=== PATIENT | female | born 1990 | race African-American/Black ===

== ENCOUNTER 2016-11-05 11:07 | Outpatient (CLI) ==
[2016-03-22 21:22] VITALS: BMI 30.9
[2016-11-05 11:22] LABS: BASOPHILS % (AUTO) 0.3 % (0.0-3.0); EOSINOPHILS # (AUTO) 0.1 K/ul (0.0-0.7); EOSINOPHILS % (AUTO) 1.5 % (0.0-7.0); HEMATOCRIT 44.5 % (37.0-47.0); HEMOGLOBIN 13.8 g/dl (12.0-16.0); IMMATURE GRANULOCYTE % (AUTO) 0.3 % (0.0-5.0); LYMPHOCYTES # (AUTO) 1.8 K/uL (0.60-3.4); LYMPHOCYTES % (AUTO) 45.1 (10.0-50.0); MEAN CORPUSCULAR HEMOGLOBIN 27.4 pg (27.0-31.0); MEAN CORPUSCULAR VOLUME 88.3 fl (81.0-99.0); MONOCYTES # (AUTO) 0.3 K/uL (0.4-2.0); MONOCYTES % (AUTO) 6.7 (0-10); NEUTROPHILS # (AUTO) 1.8 K/ul (2.0-6.9); NEUTROPHILS % (AUTO) 46.1; PLATELET COUNT 227 10^3/uL (140-440); RED BLOOD COUNT 5.04 10^6/ul (4.20-5.40)
--- NOTE | 2016-11-05 11:41 | DI ---
EXAM: Two views of the right hip HISTORY: Lower back pain. COMPARISON: Left hip x-rays same day FINDINGS: There is no cortical irregularity or displaced fracture of the right hip. The joint space is maintained. There is no dislocation. The adjacent osseous structures the pelvis are normal. T here is a intrauterine device noted in the pelvis. IMPRESSION: No acute abnormality of the right hip.
--- NOTE | 2016-11-05 11:46 | DI ---
EXAM: Five radiographic images of the lumbar spine. Comparison: None available. Reason for study: Low back pain. FINDINGS: No acute fracture or subluxation. The vertebral bodies and intervertebral body disc spac e heights are well maintained. There is maintenance of the lumbar lordosis. Radiopaque intrauterine device is seen within the pelvis. Metallic clips overlying the thoracic spinal are presumed to the exterior to the patient. The partially imaged bowel gas pattern is unremarkable. IMPRESSION: No acute fracture or subluxation is seen in the lumbar spine.
--- NOTE | 2016-11-05 11:55 | DI ---
EXAM: Two views of the left hip HISTORY: Lower back pain. COMPARISON: Right hip x-rays same day FINDINGS: There is no lytic or blastic lesion of the left hip. The joint space is maintained. Ther e is no displaced fracture or dislocation. There is an intrauterine device in place. IMPRESSION: No acute abnormality of the left hip.
[2016-11-05 12:02] LABS: ALBUMIN 4.3 g/dL (3.4-5.0); ALBUMIN/GLOBULIN RATIO 1.3; ANION GAP 13.3; BILIRUBIN,TOTAL 0.32 mg/dL (0.00-1.20); BUN/CREATININE RATIO 29.54; CALCIUM 9.5 mg/dL (8.2-10.2); CREATININE 0.88 mg/dL (0.60-1.30); POTASSIUM 4.3 mmol/L (3.5-5.10); TOTAL PROTEIN 7.6 g/dL (6.4-8.2)
== END 2016-11-05 11:08 | disposition home or self-care (01) ==
LOC: LAB 11:07
PROVIDERS: ATTEND Nurse Practitioner Family
DX: E66.9 Obesity, unspecified (principal); R53.83 Other fatigue; M25.551 Pain in right hip; M54.5 Low back pain
CPT/HCPCS: 36415; 80053; 82306; 84443; 85025

== ENCOUNTER 2016-12-07 12:13 | Outpatient (CLI) ==
[2016-03-22 21:22] VITALS: BMI 30.9
[2016-12-07 12:51] LABS: CREATININE 0.86 mg/dL (0.60-1.30)
== END 2016-12-07 12:14 | disposition home or self-care (01) ==
LOC: LAB 12:13
PROVIDERS: ATTEND Nurse Practitioner Family
DX: R79.9 Abnormal finding of blood chemistry, unspecified (principal)
CPT/HCPCS: 36415; 82565; 84520

== ENCOUNTER 2017-01-07 15:17 | Emergency (ER) ==
[2017-01-07 15:25] VITALS: BP 113/77; TEMP 98.3; BMI 29.2
--- NOTE | 2017-01-07 15:47 | ED.PDOC ---
General ED Provider: Dr. DAVID HALE JR Chief Complaint: Back Pain Stated Complaint: woke up at 0200 this am--severe pain to left flank area-- denies any injury--had similar pain in past--bun elevated and instructed to drink more water--has been doing so--this pain hurts worse with movement--feels thirsty all the time--. [ End ]98.3 71 16 98% 113/77 03/03. CYST X1. D&C 2009 ALSO HAD BLOOD TRANSFUSION AT THIS TIME. WISDOM TEETH EXTRACTED X4. [ End ]. sleep apnea migraines. last summer--has iud Time Seen by Physician: 15:51 Mode of Arrival: Walk-In Information Source: Patient Exam Limitations: No limitations Primary Care Provider: RAJEEV BECKHAM Nursing and Triage Documentation Reviewed and Agree: No Review of Systems - Review Of Systems Constitutional: Reports: No symptoms Eyes: Reports: No symptoms Ears, Nose, Mouth, Throat: Reports: No symptoms Respiratory: Reports: No symptoms Cardiac: Reports: No symptoms GI: Reports: No symptoms : Reports: Flank pain, Pain (left flank pain worse last night had been better since seen in October for samew- elevated bun at that time), Urgency Musculoskeletal: Reports: Back pain, Muscle pain Skin: Reports: No symptoms Neurological: Reports: No symptoms Endocrine: Reports: No symptoms Hematologic/Lymphatic: Reports: No symptoms All Other Systems: Other Past Medical History - Past Medical History Endocrine: Reports: None Cardiovascular: Reports: None Respiratory: Reports: None Hematological: Reports: None Gastrointestinal: Reports: None Genitourinary: Reports: None Neuro/Psych: Reports: Migraine, Other Musculoskeletal: Reports: None Cancer: Reports: None Last Menstrual Period: last summer--has iud Other Pertinent Past Medical History: SLEEP APNEA - Surgical History General Surgical History: Reports: Other (WISDOM TEETH EXTRACTED X4). Denies: Hysterectomy (CYST X1D&C 2010 ALSO HAD BLOOD TRANSFUSION AT THIS TIME) - Family History Family History: Reports: Unknown - Social History Smoking Status: Never smoker Hx Substance Use: No Alcohol Screening: Occasionally Physical Exam - Physical Exam Appearance: Well-appearing Pain Distress: Mild Eyes: LANI, EOMI, Conjunctiva clear ENT: Ears normal, Nose normal, Oropharynx normal Neck: Supple Respiratory: Airway patent, Breath sounds clear, Breath sounds equal, Respirations nonlabored Cardiovascular: RRR, Pulses normal, No rub, No murmur GI/: Soft, Nontender, No masses, Bowel sounds normal, No Organomegaly Musculoskeletal: Normal strength, ROM intact, No edema, No calf tenderness Skin: Warm, Dry, Normal color Neurological: Sensation intact, Motor intact, Reflexes intact, Cranial nerves intact, Alert, Oriented Psychiatric: Affect appropriate, Mood appropriate Critical Care Note - Critical Care Note Total Time (mins): 0 Course - Course Hematology/Chemistry: 01/07/17 16:10 01/07/17 16:10 Orders, Labs, Meds: Lab Review 01/07/17 01/07/17 15:30 16:10 WBC 5.31 RBC 5.57 H Hgb 15.5 Hct 47.8 H MCV 85.8 MCH 27.8 MCHC 32.4 RDW Coeff of Joel 13.2 Plt Count 254 Immature Gran % (Auto) 0.2 Neut % (Auto) 53.6 Lymph % (Auto) 38.8 Emery % (Auto) 5.1 Eos % (Auto) 1.9 Baso % (Auto) 0.4 Immature Gran # (Auto) 0.0 Neut # 2.9 Lymph # 2.1 Emery # 0.3 L Eos # 0.1 Baso # 0.0 Sodium 140 Potassium 3.9 Chloride 101 Carbon Dioxide 31 Anion Gap 11.9 BUN 20 H Creatinine 0.91 Estimated GFR (MDRD) 89.00 BUN/Creatinine Ratio 21.97 Glucose 101 Calcium 10.0 Total Bilirubin 0.29 AST 17 ALT 19 Alkaline Phosphatase 51 Total Protein 9.0 H Albumin 4.8 Globulin 4.2 Albumin/Globulin Ratio 1.14 Amylase 80 Lipase 67 Urine Color Yellow Urine Clarity Hazy Urine pH 6.5 Ur Specific [place] 1.025 Urine Protein Trace Urine Glucose (UA) Negative Urine Ketones Trace Urine Blood Negative Urine Nitrite Negative Urine Bilirubin Negative Urine Urobilinogen 1.0 Ur Leukocyte Esterase Negative Urine Microscopic RBC 2-5 Urine Microscopic WBC 0-2 Ur Squamous Epith Cells 20-30 Amorphous Sediment 2+ Urine Bacteria Trace Urine Mucus 1+ Urine Test Negative Orders Category Date Time Status AMYLASE Stat LAB 01/07/17 16:10 Completed CBC W/ AUTO DIFF Stat LAB 01/07/17 16:10 Completed COMPREHENSIVE METABOLIC PANEL Stat LAB 01/07/17 16:10 Completed LIPASE Stat LAB 01/07/17 16:10 Completed TEST URINE [URINE ] Stat LAB 01/07/17 15:30 Completed UA [URINALYSIS C & S IF INDICATED] Stat LAB 01/07/17 15:[address] ABDOMEN/PELVIS WO CONTRAST Stat RADS 01/07/17 17:02 Completed Vital Signs: Temp Pulse Resp BP Pulse Ox 01/07/17 15:18 98.3 F 71 16 113/77 98 Departure - Departure Time of Disposition: 19:04 Disposition: HOME SELF-CARE Discharge Problem: Flank pain Instructions: Flank Pain (ED) Condition: Good Pt referred to PMD for follow-up: Yes Additional Instructions: no evidence of kidney problems specifically no kidney stones increase fluids- 6 to 8 8 ounce cups of clear liquids daily follow up with PMD- call in morning for routine follow up may use Naprosyn or Motrin for pain recheck urea nitrogen with PMD Prescriptions: Naproxen [Naprosyn] 500 mg PO Q12HR PRN #30 tablet PRN Reason: PAIN Allergies/Adverse Reactions: Allergies No Known Allergies Allergy (Verified 01/07/17 15:27) Home Medications: Ambulatory Orders Levonorgestrel [Mirena] 1 each IY d 09/05/15 Naproxen [Naprosyn] 500 mg PO Q12HR PRN #30 tablet 01/07/17
[2017-01-07 16:14] LABS: BASOPHILS % (AUTO) 0.4 % (0.0-3.0); EOSINOPHILS # (AUTO) 0.1 K/ul (0.0-0.7); EOSINOPHILS % (AUTO) 1.9 % (0.0-7.0); HEMATOCRIT 47.8 % (37.0-47.0); HEMOGLOBIN 15.5 g/dl (12.0-16.0); IMMATURE GRANULOCYTE % (AUTO) 0.2 % (0.0-5.0); LYMPHOCYTES # (AUTO) 2.1 K/uL (0.60-3.4); LYMPHOCYTES % (AUTO) 38.8 (10.0-50.0); MEAN CORPUSCULAR HEMOGLOBIN 27.8 pg (27.0-31.0); MEAN CORPUSCULAR HGB CONC 32.4 (31.8-35.4); MEAN CORPUSCULAR VOLUME 85.8 fl (81.0-99.0); MONOCYTES # (AUTO) 0.3 K/uL (0.4-2.0); MONOCYTES % (AUTO) 5.1 (0-10); NEUTROPHILS # (AUTO) 2.9 K/ul (2.0-6.9); NEUTROPHILS % (AUTO) 53.6; PLATELET COUNT 254 10^3/uL (140-440); RED BLOOD COUNT 5.57 10^6/ul (4.20-5.40); WHITE BLOOD COUNT 5.31 K/ul (4.6-10.2)
[2017-01-07 16:25] LABS: BILIRUBIN,URINE Negative (NEGATIVE); KETONES,URINE Trace (NEGATIVE); LEUKOCYTE ESTERASE ,URINE Negative (NEGATIVE); NITRITE,URINE Negative (NEGATIVE); PH,URINE 6.5 (5-9); PROTEIN,URINE Trace (NEGATIVE); URINE, BLOOD Negative (NEGATIVE)
[2017-01-07 16:34] LABS: ADD URINE MICROSCOPIC YES
[2017-01-07 16:35] LABS: BACTERIA,URINE TRACE (NOT PRESENT)
[2017-01-07 16:40] LABS: ALBUMIN 4.8 g/dL (3.4-5.0); ALBUMIN/GLOBULIN RATIO 1.14; ANION GAP 11.9; BILIRUBIN,TOTAL 0.29 mg/dL (0.00-1.20); BUN/CREATININE RATIO 21.97; CREATININE 0.91 mg/dL (0.60-1.30); POTASSIUM 3.9 mmol/L (3.5-5.10)
[2017-01-07 18:07] LABS: URINE PREGNANCY INTERNAL QC INTERNAL QC VALID
--- NOTE | 2017-01-07 18:57 | CT ---
EXAM: CT scan abdomen pelvis without contrast HISTORY: Left flank pain COMPARISON: None. FINDINGS: Contiguous axial images were obtained from lung bases to the symphysis pubis without cont rast utilizing 3-mm,. Sagittal and coronal reconstructions were imaged and reviewed.. There is dep endent atelectasis at the left lung base. The gallbladder is contracted. The liver pancreas spleen and adrenal glands have normal unenhanced CT appearance. The abdominal aorta is normal in course a nd caliber. Kidneys are morphologically normal. There is an intrauterine device within the uterus.. There is umbilical hernia containing fat.. Bone windows reveals no evidence of lytic or blastic l esions. IMPRESSION: There is an intrauterine device within uterus. There is no evidence of free fluid or inflammatory changes. Umbilical hernia containing only fat. And
== END 2017-01-07 19:46 | disposition home or self-care (01) ==
LOC: ED 15:17
DX: M54.9 Dorsalgia, unspecified (principal)
CPT/HCPCS: 36415; 80053; 81001; 81025; 82150; 83690; 85025; 99283

== ENCOUNTER 2017-08-11 08:29 | Outpatient (CLI) ==
[2017-08-11 09:33] LABS: ALBUMIN/GLOBULIN RATIO 1.08; ANION GAP 10.5; BILIRUBIN,TOTAL 0.28 mg/dL (0.00-1.20); BUN/CREATININE RATIO 24.09; CALCIUM 9.7 mg/dL (8.2-10.2); CHOL/HDL RATIO 3.1 (4.5-5.5); CREATININE 0.83 mg/dL (0.60-1.30); POTASSIUM 4.5 mmol/L (3.5-5.10); TOTAL PROTEIN 7.7 g/dL (6.4-8.2)
== END 2017-08-11 08:30 | disposition home or self-care (01) ==
LOC: LAB 08:29
PROVIDERS: ATTEND Nurse Practitioner Family
DX: R63.5 Abnormal weight gain (principal); E55.9 Vitamin D deficiency, unspecified
CPT/HCPCS: 36415; 80053; 80061; 82306; 84443; 93005; 93010

== ENCOUNTER 2022-04-11 08:38 | Inpatient (IN) ==
[2022-04-11 09:08] LABS: BILIRUBIN,URINE Negative (NEGATIVE); CLARITY,URINE Clear (CLEAR); COLOR,URINE Yellow (YELLOW); GLUCOSE, URINE (UA) Negative (NEGATIVE); KETONES,URINE Negative (NEGATIVE); LEUKOCYTE ESTERASE ,URINE Negative (NEGATIVE); NITRITE,URINE Negative (NEGATIVE); PH,URINE 7.5 (5-9); PROTEIN,URINE Trace (NEGATIVE); URINE, BLOOD Negative (NEGATIVE); UROBILINOGEN,URINE 0.2 (0.2)
[2022-04-11 09:10] LABS: URINE PREGNANCY TEST NEGATIVE (NEGATIVE)
[2022-04-11 09:14] LABS: BACTERIA,URINE TRACE (NOT PRESENT); MUCUS,URINE 2+ (NOT PRESENT); URINE RBC, MICROSCOPIC 0-2 (0-2); URINE WBC, MICROSCOPIC 0-2 (0-2)
[2022-04-11] MEDS ORDERED: TYLENOL PO STA (09:31)
[2022-04-11] MEDS ORDERED: SODIUM CHLORIDE 500 ML IV STA ×2 (09:36→12:56)
--- NOTE | 2022-04-11 09:42 | ED.PDOC ---
General ED Provider: Dr. MARILU GROVER Chief Complaint: Nausea/Vomiting Stated Complaint: woke up with headache nausea / emesis, malaise chills felt like she had fever . Hx migraine. Took home preg test reports faint positive has IUD and its up to date ,no covid vaccine, no meds taken. Reports new onset non productive cough . Non smoker, No injury Time Seen by Provider: 04/11/22 08:55 Mode of Arrival: Walk-In Information Source: Patient Exam Limitations: No limitations Primary Care Provider: do Nursing and Triage Documentation Reviewed and Agree: Yes Does patient meet sepsis criteria?: No System Inflammatory Response Syndrome: Not Applicable Sepsis Protocol: For patient's 13 years and over: Temp is 96.8 and below OR 101 and greater Pulse >90 BPM Resp >20/minute Acutely Altered Mental Status Are patient's symptoms suggestive of a new infection, such as: -Pneumonia -Skin, Soft Tissue -Endocarditis -UTI -Bone, Joint Infection -Implantable Device -Acute Abdominal Infection -Wound Infection -Meningitis -Blood Stream Catheter Infection -Unknown Review of Systems Review Of Systems Constitutional: Reports Chills, Fever (reports sensation of / low grade ) and Malaise; Denies Diaphoresis, Weakness or Sweats Eyes: Reports No symptoms; Denies Vision change Ears, Nose, Mouth, Throat: Reports No symptoms Respiratory: Reports Cough; Denies Short of air Cardiac: Reports No symptoms; Denies Chest pain, Edema, Irregular heart rate, Palpitations or Syncope GI: Reports Nausea and Vomiting; Denies Abdominal pain or Diarrhea : Reports No symptoms; Denies Frequency or Hematuria Musculoskeletal: Reports No symptoms Skin: Reports No symptoms; Denies Rash Neurological: Reports Anxiety and Headache (frontal / right ) Endocrine: Reports No symptoms Hematologic/Lymphatic: Reports No symptoms All Other Systems: Reviewed and Negative [facility] Medical History Migraine Ovarian cyst Sleep apnea Family History Mother Sleep apnea CHF (congestive heart failure) Hypertension Obesity Grandfather/Grandmother Cancer Hypertension FATHER Brain aneurysm Social History Smoking and tobacco status: Never smoker Surgical History History of ear, nose, and throat (ENT) surgery (~2009) History of surgery (02/06/12) Additional Medical History: D&C , umbilical hernia Female Reproductive History Menstrual control method: progestin IUCD Hx Hysterectomy: No Hx Tubal Ligation: No Hx Now: No Physical Exam Physical Exam Appearance: Reports Ill-appearing and Obese Ill-appearing: Mild Pain Distress: Mild Eyes: Reports LANI, EOMI and Conjunctiva clear ENT: Reports Ears normal, Nose normal and Oropharynx normal Neck: Supple Respiratory: Reports Airway patent, Breath sounds clear, Breath sounds equal and Respirations nonlabored; Denies Crackles, Rhonchi, Wheezes or Retractions Cardiovascular: Reports No murmur and Tachycardia; Denies Irregular rhythm GI/: Reports Soft and Nontender; Denies Tender Musculoskeletal: Reports Normal strength, ROM intact, No edema and No calf tenderness Skin: Reports Warm, Dry and Normal color; Denies Pale Neurological: Reports Sensation intact, Motor intact, Alert and Oriented Psychiatric: Reports Affect appropriate Interpretation Radiology Interpretation Radiology Interpretation By: Radiologist Exam Interpreted: CXR and CT Scan Xray Comments: neg chest neg ct brain EKG Interpretation Time of EKG #1: 12:39 Rate: Tachy Rhythm: Sinus Farnam: NL ST Segment: Other Interpretation: t wave inversion inf ant lat neg trop neg pain Time of EKG #2: 14:56 Rate: Tachy Rhythm: Sinus Ectopy: None Farnam: NL EKG Interpretation: improved from earlier Critical Care Note Critical Care Note Total Critical Care Time (mins): 30 Comments: reasessments / studies / reviews / meds Course Course Hematology/Chemistry: 04/11/22 09:47 04/11/22 09:47 Orders, Labs, Meds: Lab Review 04/11/22 04/11/22 04/11/22 09:00 09:00 09:35 WBC RBC Hgb Hct MCV MCH MCHC RDW Coeff of Joel Plt Count Immature Gran % (Auto) Neut % (Auto) Lymph % (Auto) Teller % (Auto) Eos % (Auto) Baso % (Auto) Neut # (Auto) Lymph # (Auto) Teller # (Auto) Eos # (Auto) Baso # (Auto) Immature Gran # (Auto) ESR PT INR APTT Sodium Potassium Chloride Carbon Dioxide Anion Gap BUN Creatinine Estimated GFR (MDRD) BUN/Creatinine Ratio Glucose Lactic Acid Calcium Total Bilirubin AST ALT Alkaline Phosphatase Troponin I Total Protein Albumin Globulin Albumin/Globulin Ratio Procalcitonin TSH D-Dimer Urine Color Yellow Urine Clarity Clear Urine pH 7.5 Ur Specific [place] 1.020 Urine Protein Trace H Urine Glucose (UA) Negative Urine Ketones Negative Urine Blood Negative Urine Nitrite Negative Urine Bilirubin Negative Urine Urobilinogen 0.2 Ur Leukocyte Esterase Negative Urine Microscopic RBC 0-2 Urine Microscopic WBC 0-2 Ur Squamous Epith Cells 10-20 Urine Bacteria Trace Urine Mucus 2+ Urine Test Negative Urine Opiates Screen Ur Oxycodone Screen Urine Methadone Screen Ur Propoxyphene Screen Ur Barbiturates Screen U Tricyclic Antidepress Ur Phencyclidine Scrn Ur Amphetamine Screen U Methamphetamines Scrn U Benzodiazepines Scrn Urine Cocaine Screen U Cannabinoids Screen SARS CoV-2 RNA Rapid GUILLERMINA Positive H 04/11/22 04/11/22 04/11/22 09:47 09:47 09:47 WBC 4.83 RBC 4.84 Hgb 13.4 Hct 41.6 MCV 86.0 MCH 27.7 MCHC 32.2 RDW Coeff of Joel 13.7 Plt Count 188 Immature Gran % (Auto) 0.2 Neut % (Auto) 84.7 H Lymph % (Auto) 5.6 L Teller % (Auto) 8.5 Eos % (Auto) 0.8 Baso % (Auto) 0.2 Neut # (Auto) 4.1 Lymph # (Auto) 0.3 L Teller # (Auto) 0.4 Eos # (Auto) 0.0 Baso # (Auto) 0.0 Immature Gran # (Auto) 0.0 ESR PT INR APTT Sodium 135.6 Potassium 4.26 Chloride 101.5 Carbon Dioxide 23.5 Anion Gap 14.86 BUN 13.5 Creatinine 0.87 Estimated GFR (MDRD) 91.00 BUN/Creatinine Ratio 15.51 Glucose 115.6 H Lactic Acid Calcium 8.92 Total Bilirubin 0.33 AST 30.2 ALT 24.1 Alkaline Phosphatase 53.4 Troponin I Total Protein 7.79 Albumin 4.44 Globulin 3.35 Albumin/Globulin Ratio 1.32 Procalcitonin TSH 0.403 L D-Dimer Urine Color Urine Clarity Urine pH Ur Specific [place] Urine Protein Urine Glucose (UA) Urine Ketones Urine Blood Urine Nitrite Urine Bilirubin Urine Urobilinogen Ur Leukocyte Esterase Urine Microscopic RBC Urine Microscopic WBC Ur Squamous Epith Cells Urine Bacteria Urine Mucus Urine Test Urine Opiates Screen Ur Oxycodone Screen Urine Methadone Screen Ur Propoxyphene Screen Ur Barbiturates Screen U Tricyclic Antidepress Ur Phencyclidine Scrn Ur Amphetamine Screen U Methamphetamines Scrn U Benzodiazepines Scrn Urine Cocaine Screen U Cannabinoids Screen SARS CoV-2 RNA Rapid GUILLERMINA 04/11/22 04/11/22 04/11/22 13:15 13:15 13:15 WBC RBC Hgb Hct MCV MCH MCHC RDW Coeff of Joel Plt Count Immature Gran % (Auto) Neut % (Auto) Lymph % (Auto) Teller % (Auto) Eos % (Auto) Baso % (Auto) Neut # (Auto) Lymph # (Auto) Teller # (Auto) Eos # (Auto) Baso # (Auto) Immature Gran # (Auto) ESR 5 PT 11.4 H INR 1.11 APTT 29.6 Sodium Potassium Chloride Carbon Dioxide Anion Gap BUN Creatinine Estimated GFR (MDRD) BUN/Creatinine Ratio Glucose Lactic Acid 0.66 L Calcium Total Bilirubin AST ALT Alkaline Phosphatase Troponin I Total Protein Albumin Globulin Albumin/Globulin Ratio Procalcitonin TSH D-Dimer Urine Color Urine Clarity Urine pH Ur Specific [place] Urine Protein Urine Glucose (UA) Urine Ketones Urine Blood Urine Nitrite Urine Bilirubin Urine Urobilinogen Ur Leukocyte Esterase Urine Microscopic RBC Urine Microscopic WBC Ur Squamous Epith Cells Urine Bacteria Urine Mucus Urine Test Urine Opiates Screen Ur Oxycodone Screen Urine Methadone Screen Ur Propoxyphene Screen Ur Barbiturates Screen U Tricyclic Antidepress Ur Phencyclidine Scrn Ur Amphetamine Screen U Methamphetamines Scrn U Benzodiazepines Scrn Urine Cocaine Screen U Cannabinoids Screen SARS CoV-2 RNA Rapid GUILLERMINA 04/11/22 04/11/22 04/11/22 13:15 13:15 13:15 WBC RBC Hgb Hct MCV MCH MCHC RDW Coeff of Joel Plt Count Immature Gran % (Auto) Neut % (Auto) Lymph % (Auto) Teller % (Auto) Eos % (Auto) Baso % (Auto) Neut # (Auto) Lymph # (Auto) Teller # (Auto) Eos # (Auto) Baso # (Auto) Immature Gran # (Auto) ESR PT INR APTT Sodium Potassium Chloride Carbon Dioxide Anion Gap BUN Creatinine Estimated GFR (MDRD) BUN/Creatinine Ratio Glucose Lactic Acid Calcium Total Bilirubin AST ALT Alkaline Phosphatase Troponin I < 0.012 Total Protein Albumin Globulin Albumin/Globulin Ratio Procalcitonin < 0.05 TSH D-Dimer 254.46 Urine Color Urine Clarity Urine pH Ur Specific [place] Urine Protein Urine Glucose (UA) Urine Ketones Urine Blood Urine Nitrite Urine Bilirubin Urine Urobilinogen Ur Leukocyte Esterase Urine Microscopic RBC Urine Microscopic WBC Ur Squamous Epith Cells Urine Bacteria Urine Mucus Urine Test Urine Opiates Screen Ur Oxycodone Screen Urine Methadone Screen Ur Propoxyphene Screen Ur Barbiturates Screen U Tricyclic Antidepress Ur Phencyclidine Scrn Ur Amphetamine Screen U Methamphetamines Scrn U Benzodiazepines Scrn Urine Cocaine Screen U Cannabinoids Screen SARS CoV-2 RNA Rapid GUILLERMINA 04/11/22 04/11/22 13:50 16:34 WBC RBC Hgb Hct MCV MCH MCHC RDW Coeff of Joel Plt Count Immature Gran % (Auto) Neut % (Auto) Lymph % (Auto) Teller % (Auto) Eos % (Auto) Baso % (Auto) Neut # (Auto) Lymph # (Auto) Teller # (Auto) Eos # (Auto) Baso # (Auto) Immature Gran # (Auto) ESR PT INR APTT Sodium Potassium Chloride Carbon Dioxide Anion Gap BUN Creatinine Estimated GFR (MDRD) BUN/Creatinine Ratio Glucose Lactic Acid Calcium Total Bilirubin AST ALT Alkaline Phosphatase Troponin I < 0.012 Total Protein Albumin Globulin Albumin/Globulin Ratio Procalcitonin TSH D-Dimer Urine Color Urine Clarity Urine pH Ur Specific [place] Urine Protein Urine Glucose (UA) Urine Ketones Urine Blood Urine Nitrite Urine Bilirubin Urine Urobilinogen Ur Leukocyte Esterase Urine Microscopic RBC Urine Microscopic WBC Ur Squamous Epith Cells Urine Bacteria Urine Mucus Urine Test Urine Opiates Screen Negative Ur Oxycodone Screen Negative Urine Methadone Screen Negative Ur Propoxyphene Screen Negative Ur Barbiturates Screen Negative U Tricyclic Antidepress Negative Ur Phencyclidine Scrn Negative Ur Amphetamine Screen Negative U Methamphetamines Scrn Negative U Benzodiazepines Scrn Negative Urine Cocaine Screen Negative U Cannabinoids Screen Negative SARS CoV-2 RNA Rapid GUILLERMINA Orders Category Date Time Status PLACE PATIENT OBSERVATION .TO SCU (MONITORED BED) ADMISSION 04/11/22 18:48 Active EKG-(ED ONLY) Stat CARDIO 04/11/22 12:24 Completed EKG-(ED ONLY) Stat CARDIO 04/11/22 14:49 Completed EKG-(IP & OP ONLY) DAILY CARDIO 04/12/22 06:00 Ordered EKG-(IP & OP ONLY) DAILY CARDIO 04/13/22 06:00 Ordered ACTIVITY .Up With Assistance CARE 04/11/22 18:48 Active INTAKE & OUTPUT Q8HR CARE 04/11/22 18:48 Active IP: INSERT SALINE LOCK ONCE CARE 04/11/22 18:48 Active TELEMETRY MONITORING TELE CARE 04/11/22 18:48 Active VITAL SIGNS Q8HR CARE 04/11/22 18:48 Active REGULAR DIET DIETARY 04/11/22 Dinner Ordered ED IV/MEDIPORT/POWERPORT .ONCE EMERGENCY 04/11/22 09:36 Active CBC W/ AUTO DIFF DAILY@0600 LAB 04/12/22 06:00 Ordered CBC W/ AUTO DIFF DAILY@0600 LAB 04/13/22 06:00 Ordered CBC W/ AUTO DIFF Stat LAB 04/11/22 09:47 Completed CMP [COMPREHENSIVE METABOLIC PANEL] Stat LAB 04/11/22 09:47 Completed COMPREHENSIVE METABOLIC PANEL DAILY@0600 LAB 04/12/22 06:00 Ordered COMPREHENSIVE METABOLIC PANEL DAILY@0600 LAB 04/13/22 06:00 Ordered COVID [SARS COV-2 RNA RAPID GUILLERMINA] Urgent LAB 04/11/22 09:35 Completed D-DIMER Stat LAB 04/11/22 13:15 Completed ESR Stat LAB 04/11/22 13:15 Completed LACTIC ACID Stat LAB 04/11/22 13:15 Completed PROCALCITONIN Stat LAB 04/11/22 13:15 Completed PT WITH INR Stat LAB 04/11/22 13:15 Completed PTT [PARTIAL THROMBOPLASTIN TIME] Stat LAB 04/11/22 13:15 Completed THYROID PANEL WITH TSH Stat LAB 04/11/22 13:15 Received TROPONIN I Q8H LAB 04/12/22 01:00 Ordered TROPONIN I Q8H LAB 04/12/22 09:00 Ordered TROPONIN I Stat LAB 04/11/22 13:15 Completed TROPONIN I Stat LAB 04/11/22 16:34 Completed TSH [THYROID STIMULATING HORMONE] Stat LAB 04/11/22 09:47 Completed URINALYSIS C & S IF INDICATED Stat LAB 04/11/22 09:00 Completed URINE DRUG SCREEN (RAPID FOR ED) [DRUG SCREEN, URINE, LAB 04/11/22 13:50 Completed RAPID] Stat URINE Stat LAB 04/11/22 09:00 Completed 0.9 % Sodium Chloride [Saline Flush] MEDS 04/11/22 09:36 Active 1 syr IVF PRN PRN Acetaminophen [Tylenol] MEDS 04/11/22 09:31 Discontinued 1,000 mg PO ONCE STA Acetaminophen [Tylenol] MEDS 04/11/22 18:48 Active 650 mg PO Q4H PRN Enoxaparin Sodium [Lovenox] MEDS 04/12/22 09:00 Discontinued 40 mg SUBCUT DAILY Ketorolac Tromethamine [Toradol] MEDS 04/11/22 11:45 Discontinued 30 mg IVP ONCE STA Lorazepam [Ativan] MEDS 04/11/22 12:26 Discontinued 0.5 mg IVP ONCE STA Nirmatrelvir/Ritonavir [Paxlovid 2X150 mg-100 mg (Eua)] MEDS 04/11/22 21:00 Active 3 tab PO BID Sodium Chloride 0.9% [Sodium Chloride] 1,000 ml MEDS 04/11/22 12:44 Discontinued IV 125 mls/hr Sodium Chloride 0.9% [Sodium Chloride] 1,000 ml MEDS 04/11/22 19:00 Active IV 75 mls/hr Sodium Chloride 0.9% [Sodium Chloride] 500 ml MEDS 04/11/22 12:56 Discontinued IV 100 mls/hr Sodium Chloride 0.9% [Sodium Chloride] 500 ml MEDS 04/11/22 09:36 Discontinued IV BOLUS RESUSCITATION STATUS Routine OTHERS 04/11/22 18:48 Ordered CHEST, 2 VIEWS PA & LAT Stat RADS 04/11/22 09:[address] HEAD W/O CONTRAST Stat RADS 04/11/22 09:31 Completed Medications Generic Name Dose Route Start Last Admin Trade Name Freq PRN Reason Stop Dose Admin Acetaminophen 650 mg 04/11/22 18:48 04/11/22 21:34 Acetaminophen 325 Mg Tablet PO 650 mg Q4H PRN Administration Mild Pain Enoxaparin Sodium 40 mg 04/11/22 21:00 04/11/22 21:49 Enoxaparin Sodium 40 Mg/0.4 Ml Syr SUBCUT 40 mg DAILY STEPHANIE Administration Sodium Chloride 1,000 mls @ 75 mls/hr 04/11/22 19:00 04/11/22 21:37 Sodium Chloride IV 75 mls/hr .[id number] STEPHANIE Administration Ondansetron HCl 4 mg 04/11/22 21:09 04/11/22 21:35 Ondansetron Hcl/Pf 4 Mg/2 Ml Sdv IVP 4 mg Q8H PRN Administration Nausea / Vomiting Sodium Chloride 1 syr 04/11/22 09:36 04/11/22 11:50 0.9% Sodium Chloride 10 Ml Disp.Syrin IVF 1 syr PRN PRN Administration To flush IV Discontinued Medications Generic Name Dose Route Start Last Admin Trade Name Freq PRN Reason Stop Dose Admin Acetaminophen 1,000 mg 04/11/22 09:31 04/11/22 09:39 Acetaminophen 500 Mg Tablet PO 04/11/22 09:32 1,000 mg ONCE STA Administration Dexamethasone Sodium Phosphate 4 mg 04/11/22 22:26 04/11/22 22:34 Dexamethasone Sod Phos 4 Mg/Ml Inj IVP 04/11/22 22:27 4 mg ONCE ONE Administration Enoxaparin Sodium 40 mg 04/12/22 09:00 Enoxaparin Sodium 40 Mg/0.4 Ml Syr SUBCUT DAILY STEPHANIE Sodium Chloride 500 mls @ 500 mls/hr 04/11/22 09:36 04/11/22 09:42 Sodium Chloride IV 04/11/22 10:35 500 mls/hr BOLUS STA Administration Sodium Chloride 1,000 mls @ 125 mls/hr 04/11/22 12:44 04/11/22 12:56 Sodium Chloride IV 04/11/22 20:43 Not Given .Q8H STA Sodium Chloride 500 mls @ 100 mls/hr 04/11/22 12:56 04/11/22 12:57 Sodium Chloride IV 04/11/22 17:55 125 mls/hr .Q5H STA Administration Dexamethasone Sodium Phosphate 1,000 mls @ 75 mls/hr 04/11/22 22:06 4 mg/ Sodium Chloride IV 04/12/22 11:25 ONCE ONE Ketorolac Tromethamine 30 mg 04/11/22 11:45 04/11/22 11:49 Ketorolac Tromethamine 30 Mg/Ml Vial IVP 04/11/22 11:46 30 mg ONCE STA Administration Lorazepam 0.5 mg 04/11/22 12:26 04/11/22 12:42 Lorazepam Inj 2 Mg/Ml Vial IVP 04/11/22 12:27 0.5 mg ONCE STA Administration our hcg is neg , consider migraine and covid. Vital Signs: Temp Pulse Resp BP Pulse Ox 04/11/22 08:39 99.2 F 116 H 20 132/84 97 1230 - pt at d/c had pulse reported 120 - d/c held - reassess - no cp or dyspnea - she reports panic attacks and had one this am and concerned for starting new job now delayed with covid dx - will add half mg of ativan and proceed due to covid dx additional study - dimer. 1350 - resting no cp or dyspnea - await dimer tsp slight low will add tox screen for completeness of evaluation studies tsh slight low other thyoid panel neg / Toradol IV with nl head ct and her aches and headche improved . No further nausea Pt sill with tachycardia with ekg abnormality ( no stemi ) will check serial enzymes and observe in ED in attempt to discharge her home. troponins neg add additional fluids in event tachy related to decreased intake.Discussed with SO with permission of patientand explaine d ED observation for improvement vs 23 hr . Pt kept in dept as I would be hospitalsit and with very busy dept I kept her where i would not have to be away from a busy ED. Called [facility] for observation and not accept suggest d/c . With my seeing patient Im concerned she will have to return. Placed call to Dr Perry and he kindly agreed to consult. SBAR given. Pt agrees with 23 hr stay. She had earlier agreed to start oral Covid treatment. Discharge Plan Discharge Patient Disposition: PLACED OBSERVATION Discharge Problem: COVID, Tachycardia, Nausea & vomiting ED Provider: MARILU GROVER Condition: Good Physician Progress Note: []
[2022-04-11 09:53] LABS: BASOPHILS % (AUTO) 0.2 % (0.0-3.0); EOSINOPHILS % (AUTO) 0.8 % (0.0-7.0); HEMATOCRIT 41.6 % (37.0-47.0); HEMOGLOBIN 13.4 g/dl (12.0-16.0); IMMATURE GRANULOCYTE % (AUTO) 0.2 % (0.0-5.0); LYMPHOCYTES # (AUTO) 0.3 K/uL (0.60-3.4); LYMPHOCYTES % (AUTO) 5.6 (10.0-50.0); MEAN CORPUSCULAR HEMOGLOBIN 27.7 pg (27.0-31.0); MEAN CORPUSCULAR HGB CONC 32.2 (31.8-35.4); MONOCYTES # (AUTO) 0.4 K/uL (0.4-2.0); MONOCYTES % (AUTO) 8.5 (0-10); NEUTROPHILS # (AUTO) 4.1 K/ul (2.0-6.9); NEUTROPHILS % (AUTO) 84.7 % (42.2-75.2); PLATELET COUNT 188 10^3/uL (140-440); RDW COEFFICIENT OF VARIATION 13.7 % (11.6-14.8); RED BLOOD COUNT 4.84 10^6/ul (4.20-5.40); WHITE BLOOD COUNT 4.83 K/ul (4.6-10.2)
[2022-04-11 10:05] LABS: ALANINE AMINOTRANSFERASE 24.1 U/L (0-35); ALBUMIN 4.44 g/dL (3.5-5.0); ALKALINE PHOSPHATASE 53.4 U/L (38-126); ASPARTATE AMINO TRANSFERASE 30.2 U/L (14-36); BILIRUBIN,TOTAL 0.33 mg/dL (0.2-1.3); BLOOD UREA NITROGEN 13.5 mg/dL (7-17); CALCIUM 8.92 mg/dL (8.4-10.2); CARBON DIOXIDE 23.5 mmol/L (22-30.0); CHLORIDE 101.5 mmol/L (98-107); CREATININE 0.87 mg/dL (0.60-1.30); GLUCOSE 115.6 mg/dL (74-106); POTASSIUM 4.26 mmol/L (3.5-5.1); SODIUM 135.6 mmol/L (134.5-145); TOTAL PROTEIN 7.79 g/dL (6.3-8.2)
--- NOTE | 2022-04-11 11:00 | CT ---
EXAM: CT head without contrast HISTORY: Headache COMPARISON: None TECHNIQUE: Serial axial images of the brain were obtained from the skull base to the vertex without IV contrast. FINDINGS: The ventricles, cisterns and sulci are normal. The carlton-white matter junction is well hany ntained. No midline shift or mass is identified. There is no abnormal intra or extra-axial fluid co llection. The paranasal sinuses and mastoid air cells are clear. The osseous calvarium is intact. IMPRESSION: No acute intracranial abnormality. All CT scans are performed using dose optimization techniques as appropriate to the performed exam an d include at least one of the following: Automated exposure control, adjustment of the mA and/or kV according t o size, and the use of iterative reconstruction technique.
--- NOTE | 2022-04-11 11:01 | DI ---
EXAM: CHEST RADIOGRAPH (2 VIEW) TECHNIQUE: Frontal and Lateral Chest Radiographs. HISTORY: Cough. COMPARISON: None. FINDINGS: Lines, Tubes, Devices: None. Lungs and Pleura: Tiny linear opacity at the left lung base. No pleural effusion. No pneumothorax. Cardiomediastinum: Normal cardiomediastinal silhouette. No aortic calcifications. Bones/Soft Tissues: No acute osseous abnormality. No soft tissue abnormality. Upper Abdomen: Within normal limits. IMPRESSION: Small area of focal scarring/atelectasis in the left lower lobe.
[2022-04-11] MEDS ORDERED: TORADOL IVP STA (11:45)
[2022-04-11] MEDS ORDERED: ATIVAN IVP STA (12:26)
[2022-04-11] MEDS ORDERED: SODIUM CHLORIDE 1,000 ML IV STA (12:44)
[2022-04-11 13:44] LABS: PARTIAL THROMBOPLASTIN TIME 29.6 SEC (23.9-40.0); PROTHROMBIN TIME 11.4 SEC (9.3-11.0)
[2022-04-11 14:12] LABS: ERYTHROCYTE SEDIMENTATION RATE 5 mm/hr (0-20)
[2022-04-11 14:30] LABS: AMPHETAMINE SCREEN,URINE NEGATIVE (NEGATIVE); BARBITURATE SCREEN,URINE NEGATIVE (NEGATIVE); BENZODIAZEPINES SCREEN,URINE NEGATIVE (NEGATIVE); CANNABINOID SCREEN,URINE NEGATIVE (NEGATIVE); COCAIN SCREEN,URINE NEGATIVE (NEGATIVE); METHADONE URINE SCREEN NEGATIVE (NEGATIVE); METHAMPHETAMINES SCREEN,URINE NEGATIVE (NEGATIVE); OPIATE SCREEN,URINE NEGATIVE (NEGATIVE); OXYCODONE URINE SCREEN NEGATIVE (NEGATIVE); PHENCYCLIDINE SCREEN,URINE NEGATIVE (NEGATIVE); PROPOXYPHENE URINE SCREEN NEGATIVE (NEGATIVE); TRICYCLIC ANTIDEPRESSANTS URIN NEGATIVE (NEGATIVE)
[2022-04-11] MEDS ORDERED: TYLENOL PO PRN (18:48)
[2022-04-11] MEDS ORDERED: SODIUM CHLORIDE 1,000 ML IV SCH (19:00)
[2022-04-11] MEDS ORDERED: ZOFRAN 4 MG/2 ML IVP PRN (21:09)
[2022-04-11 21:22] VITALS: BMI 35.7
[2022-04-11] MEDS: LOVENOX SUBCUT SCH (21:49)
[2022-04-11] MEDS ORDERED: SODIUM CHLORIDE IV ONE (22:06)
[2022-04-11] MEDS ORDERED: DECADRON IV ONE (22:06)
[2022-04-11] MEDS ORDERED: DECADRON ONE (22:19)
[2022-04-11] MEDS: PAXLOVID 2X150 MG-100 MG (EUA) PO SCH (22:20)
[2022-04-11] MEDS ORDERED: DECADRON 4 MG in SODIUM CHLORIDE 50 ML IV ONE (22:21)
[2022-04-11] MEDS ORDERED: DECADRON IVP ONE (22:26)
--- NOTE | 2022-04-11 23:12 | PCM ---
Chief Complaint Chief Complaint: nausea / vomiting / headache / myalgia / cough / chills History of Present Illness History of Present Illness: began last night Review of Systems Constitutional: Reports Fever; Denies Sweats Eyes: Reports No symptoms Ears: Reports No symptoms Nose: Reports No symptoms Throat: Reports No symptoms Mouth: Reports No symptoms Respiratory: Reports Cough; Denies Shortness of air, Hemoptysis or Pain with breathing Cardiovascular: Reports No symptoms Gastrointestinal: Reports Nausea and Vomiting Genitourinary: Reports No symptoms Last Menstrual Cycle: IUD Neurological: Reports Headache; Denies Dizziness, Seizure, Numbness, Weakness, Speech difficulty, Problems with walking, Tremor or Fainting Musculoskeletal: Reports Other (achiness ) Skin: Reports No symptoms Immunology: Reports No symptoms Hematology: Reports No symptoms Endocrine: Reports No symptoms Psychiatric: Reports Anxiety (panic attack this am ) Habits: Denies Tobacco use or Substance use Allergies Allergies Allergy/AdvReac Type Severity Reaction Status Date / Time No Known Allergies Allergy Verified 04/11/22 08:47 [facility] Medical History (Updated 04/11/22 @ 23:09 by MARILU GROVER) Migraine Ovarian cyst Sleep apnea Surgical History History of ear, nose, and throat (ENT) surgery (~2009) History of surgery (02/06/12) Family History Mother Sleep apnea CHF (congestive heart failure) Hypertension Obesity Grandfather/Grandmother Cancer Hypertension FATHER Brain aneurysm Social History Smoking and tobacco status: Never smoker Medications Medications: Medications Generic Name Dose Route Start Last Admin Trade Name Freq PRN Reason Stop Dose Admin Acetaminophen 650 mg 04/11/22 18:48 04/11/22 21:34 Acetaminophen 325 Mg Tablet PO 650 mg Q4H PRN Administration Mild Pain Enoxaparin Sodium 40 mg 04/11/22 21:00 04/11/22 21:49 Enoxaparin Sodium 40 Mg/0.4 Ml Syr SUBCUT 40 mg DAILY STEPHANIE Administration Sodium Chloride 1,000 mls @ 75 mls/hr 04/11/22 19:00 04/11/22 21:37 Sodium Chloride IV 75 mls/hr .[id number] STEPHANIE Administration Ondansetron HCl 4 mg 04/11/22 21:09 04/11/22 21:35 Ondansetron Hcl/Pf 4 Mg/2 Ml Sdv IVP 4 mg Q8H PRN Administration Nausea / Vomiting Sodium Chloride 1 syr 04/11/22 09:36 04/11/22 11:50 0.9% Sodium Chloride 10 Ml Disp.Syrin IVF 1 syr PRN PRN Administration To flush IV Body Composition Height: 5 ft 3 in Weight: 202 lb Body Mass Index (BMI): 35.7 Vital Signs Temperature: 102.1 F Pulse Rate: 120 Respiratory Rate: 20 Blood Pressure: 120/90 O2 Sat by Pulse Oximetry: 98 Physical Examination Appearance: Reports Ill-appearing Ill-appearing: Mild Pain Distress: Mild ENT: Reports Ears normal, Nose normal and Oropharynx normal Cardiovascular: Reports Tachycardia GI/: Reports Soft and Nontender Musculoskeletal: Reports Normal strength and No edema Skin: Reports Warm, Dry and Normal color Neurological: Reports Sensation intact, Motor intact, Alert and Oriented Psychiatric: Reports Affect appropriate and Mood appropriate Lab/Tests/Diagnostic Imaging Lab/Tests/Diagnostic Imaging: Lab Review 04/11/22 04/11/22 04/11/22 09:00 09:00 09:35 WBC RBC Hgb Hct MCV MCH MCHC RDW Coeff of Joel Plt Count Immature Gran % (Auto) Neut % (Auto) Lymph % (Auto) [place] % (Auto) Eos % (Auto) Baso % (Auto) Neut # (Auto) Lymph # (Auto) [place] # (Auto) Eos # (Auto) Baso # (Auto) Immature Gran # (Auto) ESR PT INR APTT Sodium Potassium Chloride Carbon Dioxide Anion Gap BUN Creatinine Estimated GFR (MDRD) BUN/Creatinine Ratio Glucose Lactic Acid Calcium Total Bilirubin AST ALT Alkaline Phosphatase Troponin I Total Protein Albumin Globulin Albumin/Globulin Ratio Procalcitonin TSH D-Dimer Urine Color Yellow Urine Clarity Clear Urine pH 7.5 Ur Specific [place] 1.020 Urine Protein Trace H Urine Glucose (UA) Negative Urine Ketones Negative Urine Blood Negative Urine Nitrite Negative Urine Bilirubin Negative Urine Urobilinogen 0.2 Ur Leukocyte Esterase Negative Urine Microscopic RBC 0-2 Urine Microscopic WBC 0-2 Ur Squamous Epith Cells 10-20 Urine Bacteria Trace Urine Mucus 2+ Urine Test Negative Urine Opiates Screen Ur Oxycodone Screen Urine Methadone Screen Ur Propoxyphene Screen Ur Barbiturates Screen U Tricyclic Antidepress Ur Phencyclidine Scrn Ur Amphetamine Screen U Methamphetamines Scrn U Benzodiazepines Scrn Urine Cocaine Screen U Cannabinoids Screen SARS CoV-2 RNA Rapid GUILLERMINA Positive H 04/11/22 04/11/22 04/11/22 09:47 09:47 09:47 WBC 4.83 RBC 4.84 Hgb 13.4 Hct 41.6 MCV 86.0 MCH 27.7 MCHC 32.2 RDW Coeff of Joel 13.7 Plt Count 188 Immature Gran % (Auto) 0.2 Neut % (Auto) 84.7 H Lymph % (Auto) 5.6 L [place] % (Auto) 8.5 Eos % (Auto) 0.8 Baso % (Auto) 0.2 Neut # (Auto) 4.1 Lymph # (Auto) 0.3 L [place] # (Auto) 0.4 Eos # (Auto) 0.0 Baso # (Auto) 0.0 Immature Gran # (Auto) 0.0 ESR PT INR APTT Sodium 135.6 Potassium 4.26 Chloride 101.5 Carbon Dioxide 23.5 Anion Gap 14.86 BUN 13.5 Creatinine 0.87 Estimated GFR (MDRD) 91.00 BUN/Creatinine Ratio 15.51 Glucose 115.6 H Lactic Acid Calcium 8.92 Total Bilirubin 0.33 AST 30.2 ALT 24.1 Alkaline Phosphatase 53.4 Troponin I Total Protein 7.79 Albumin 4.44 Globulin 3.35 Albumin/Globulin Ratio 1.32 Procalcitonin TSH 0.403 L D-Dimer Urine Color Urine Clarity Urine pH Ur Specific [place] Urine Protein Urine Glucose (UA) Urine Ketones Urine Blood Urine Nitrite Urine Bilirubin Urine Urobilinogen Ur Leukocyte Esterase Urine Microscopic RBC Urine Microscopic WBC Ur Squamous Epith Cells Urine Bacteria Urine Mucus Urine Test Urine Opiates Screen Ur Oxycodone Screen Urine Methadone Screen Ur Propoxyphene Screen Ur Barbiturates Screen U Tricyclic Antidepress Ur Phencyclidine Scrn Ur Amphetamine Screen U Methamphetamines Scrn U Benzodiazepines Scrn Urine Cocaine Screen U Cannabinoids Screen SARS CoV-2 RNA Rapid GUILLERMINA 04/11/22 04/11/22 04/11/22 13:15 13:15 13:15 WBC RBC Hgb Hct MCV MCH MCHC RDW Coeff of Joel Plt Count Immature Gran % (Auto) Neut % (Auto) Lymph % (Auto) [place] % (Auto) Eos % (Auto) Baso % (Auto) Neut # (Auto) Lymph # (Auto) [place] # (Auto) Eos # (Auto) Baso # (Auto) Immature Gran # (Auto) ESR 5 PT 11.4 H INR 1.11 APTT 29.6 Sodium Potassium Chloride Carbon Dioxide Anion Gap BUN Creatinine Estimated GFR (MDRD) BUN/Creatinine Ratio Glucose Lactic Acid 0.66 L Calcium Total Bilirubin AST ALT Alkaline Phosphatase Troponin I Total Protein Albumin Globulin Albumin/Globulin Ratio Procalcitonin TSH D-Dimer Urine Color Urine Clarity Urine pH Ur Specific [place] Urine Protein Urine Glucose (UA) Urine Ketones Urine Blood Urine Nitrite Urine Bilirubin Urine Urobilinogen Ur Leukocyte Esterase Urine Microscopic RBC Urine Microscopic WBC Ur Squamous Epith Cells Urine Bacteria Urine Mucus Urine Test Urine Opiates Screen Ur Oxycodone Screen Urine Methadone Screen Ur Propoxyphene Screen Ur Barbiturates Screen U Tricyclic Antidepress Ur Phencyclidine Scrn Ur Amphetamine Screen U Methamphetamines Scrn U Benzodiazepines Scrn Urine Cocaine Screen U Cannabinoids Screen SARS CoV-2 RNA Rapid GUILLERMINA 04/11/22 04/11/22 04/11/22 13:15 13:15 13:15 WBC RBC Hgb Hct MCV MCH MCHC RDW Coeff of Joel Plt Count Immature Gran % (Auto) Neut % (Auto) Lymph % (Auto) [place] % (Auto) Eos % (Auto) Baso % (Auto) Neut # (Auto) Lymph # (Auto) [place] # (Auto) Eos # (Auto) Baso # (Auto) Immature Gran # (Auto) ESR PT INR APTT Sodium Potassium Chloride Carbon Dioxide Anion Gap BUN Creatinine Estimated GFR (MDRD) BUN/Creatinine Ratio Glucose Lactic Acid Calcium Total Bilirubin AST ALT Alkaline Phosphatase Troponin I < 0.012 Total Protein Albumin Globulin Albumin/Globulin Ratio Procalcitonin < 0.05 TSH D-Dimer 254.46 Urine Color Urine Clarity Urine pH Ur Specific [place] Urine Protein Urine Glucose (UA) Urine Ketones Urine Blood Urine Nitrite Urine Bilirubin Urine Urobilinogen Ur Leukocyte Esterase Urine Microscopic RBC Urine Microscopic WBC Ur Squamous Epith Cells Urine Bacteria Urine Mucus Urine Test Urine Opiates Screen Ur Oxycodone Screen Urine Methadone Screen Ur Propoxyphene Screen Ur Barbiturates Screen U Tricyclic Antidepress Ur Phencyclidine Scrn Ur Amphetamine Screen U Methamphetamines Scrn U Benzodiazepines Scrn Urine Cocaine Screen U Cannabinoids Screen SARS CoV-2 RNA Rapid GUILLERMINA 04/11/22 04/11/22 13:50 16:34 WBC RBC Hgb Hct MCV MCH MCHC RDW Coeff of Joel Plt Count Immature Gran % (Auto) Neut % (Auto) Lymph % (Auto) [place] % (Auto) Eos % (Auto) Baso % (Auto) Neut # (Auto) Lymph # (Auto) [place] # (Auto) Eos # (Auto) Baso # (Auto) Immature Gran # (Auto) ESR PT INR APTT Sodium Potassium Chloride Carbon Dioxide Anion Gap BUN Creatinine Estimated GFR (MDRD) BUN/Creatinine Ratio Glucose Lactic Acid Calcium Total Bilirubin AST ALT Alkaline Phosphatase Troponin I < 0.012 Total Protein Albumin Globulin Albumin/Globulin Ratio Procalcitonin TSH D-Dimer Urine Color Urine Clarity Urine pH Ur Specific [place] Urine Protein Urine Glucose (UA) Urine Ketones Urine Blood Urine Nitrite Urine Bilirubin Urine Urobilinogen Ur Leukocyte Esterase Urine Microscopic RBC Urine Microscopic WBC Ur Squamous Epith Cells Urine Bacteria Urine Mucus Urine Test Urine Opiates Screen Negative Ur Oxycodone Screen Negative Urine Methadone Screen Negative Ur Propoxyphene Screen Negative Ur Barbiturates Screen Negative U Tricyclic Antidepress Negative Ur Phencyclidine Scrn Negative Ur Amphetamine Screen Negative U Methamphetamines Scrn Negative U Benzodiazepines Scrn Negative Urine Cocaine Screen Negative U Cannabinoids Screen Negative SARS CoV-2 RNA Rapid GUILLERMINA Orders Category Date Time Status PLACE PATIENT OBSERVATION .TO SCU (MONITORED BED) ADMISSION 04/11/22 18:48 Active EKG-(ED ONLY) Stat CARDIO 04/11/22 12:24 Completed EKG-(ED ONLY) Stat CARDIO 04/11/22 14:49 Completed EKG-(IP & OP ONLY) DAILY CARDIO 04/12/22 06:00 Ordered EKG-(IP & OP ONLY) DAILY CARDIO 04/13/22 06:00 Ordered ACTIVITY .Up With Assistance CARE 04/11/22 18:48 Active INTAKE & OUTPUT Q8HR CARE 04/11/22 18:48 Active IP: INSERT SALINE LOCK ONCE CARE 04/11/22 18:48 Active TELEMETRY MONITORING TELE CARE 04/11/22 18:48 Active VITAL SIGNS Q8HR CARE 04/11/22 18:48 Active REGULAR DIET DIETARY 04/11/22 Dinner Ordered ED IV/MEDIPORT/POWERPORT .ONCE EMERGENCY 04/11/22 09:36 Active CBC W/ AUTO DIFF DAILY@0600 LAB 04/12/22 06:00 Ordered CBC W/ AUTO DIFF DAILY@0600 LAB 04/13/22 06:00 Ordered CBC W/ AUTO DIFF Stat LAB 04/11/22 09:47 Completed CMP [COMPREHENSIVE METABOLIC PANEL] Stat LAB 04/11/22 09:47 Completed COMPREHENSIVE METABOLIC PANEL DAILY@0600 LAB 04/12/22 06:00 Ordered COMPREHENSIVE METABOLIC PANEL DAILY@0600 LAB 04/13/22 06:00 Ordered COVID [SARS COV-2 RNA RAPID GUILLERMINA] Urgent LAB 04/11/22 09:35 Completed D-DIMER Stat LAB 04/11/22 13:15 Completed ESR Stat LAB 04/11/22 13:15 Completed LACTIC ACID Stat LAB 04/11/22 13:15 Completed PROCALCITONIN Stat LAB 04/11/22 13:15 Completed PT WITH INR Stat LAB 04/11/22 13:15 Completed PTT [PARTIAL THROMBOPLASTIN TIME] Stat LAB 04/11/22 13:15 Completed THYROID PANEL WITH TSH Stat LAB 04/11/22 13:15 Received TROPONIN I Q8H LAB 04/12/22 01:00 Ordered TROPONIN I Q8H LAB 04/12/22 09:00 Ordered TROPONIN I Stat LAB 04/11/22 13:15 Completed TROPONIN I Stat LAB 04/11/22 16:34 Completed TSH [THYROID STIMULATING HORMONE] Stat LAB 04/11/22 09:47 Completed URINALYSIS C & S IF INDICATED Stat LAB 04/11/22 09:00 Completed URINE DRUG SCREEN (RAPID FOR ED) [DRUG SCREEN, URINE, LAB 04/11/22 13:50 Completed RAPID] Stat URINE Stat LAB 04/11/22 09:00 Completed 0.9 % Sodium Chloride [Saline Flush] MEDS 04/11/22 09:36 Active 1 syr IVF PRN PRN Acetaminophen [Tylenol] MEDS 04/11/22 09:31 Discontinued 1,000 mg PO ONCE STA Acetaminophen [Tylenol] MEDS 04/11/22 18:48 Active 650 mg PO Q4H PRN Dexamethasone Sod Phosphate [Decadron] MEDS 04/11/22 22:19 Discontinued 10 mg .ROUTE .STK-MED ONE Dexamethasone Sod Phosphate [Decadron] MEDS 04/11/22 22:26 Discontinued 4 mg IVP ONCE ONE Dexamethasone Sod Phosphate [Decadron] 4 mg MEDS 04/11/22 22:06 Discontinued 0.9 % Sodium Chloride [Sodium Chloride] 1,000 ml IV ONCE Enoxaparin Sodium [Lovenox] MEDS 04/11/22 21:00 Active 40 mg SUBCUT DAILY Enoxaparin Sodium [Lovenox] MEDS 04/12/22 09:00 Discontinued 40 mg SUBCUT DAILY Ketorolac Tromethamine [Toradol] MEDS 04/11/22 11:45 Discontinued 30 mg IVP ONCE STA Lorazepam [Ativan] MEDS 04/11/22 12:26 Discontinued 0.5 mg IVP ONCE STA Nirmatrelvir/Ritonavir [Paxlovid 2X150 mg-100 mg (Eua)] MEDS 04/11/22 21:00 Active 3 tab PO BID Ondansetron HCl/Pf [Zofran 4 mg/2 ml] MEDS 04/11/22 21:09 Active 4 mg IVP Q8H PRN Sodium Chloride 0.9% [Sodium Chloride] 1,000 ml MEDS 04/11/22 12:44 Discon tinued IV 125 mls/hr Sodium Chloride 0.9% [Sodium Chloride] 1,000 ml MEDS 04/11/22 19:00 Active IV 75 mls/hr Sodium Chloride 0.9% [Sodium Chloride] 500 ml MEDS 04/11/22 12:56 Discontinued IV 100 mls/hr Sodium Chloride 0.9% [Sodium Chloride] 500 ml MEDS 04/11/22 09:36 Discontinued IV BOLUS RESUSCITATION STATUS Routine OTHERS 04/11/22 18:48 Ordered CHEST, 2 VIEWS PA & LAT Stat RADS 04/11/22 09:[address] HEAD W/O CONTRAST Stat RADS 04/11/22 09:31 Completed Medications Generic Name Dose Route Start Last Admin Trade Name Freq PRN Reason Stop Dose Admin Acetaminophen 650 mg 04/11/22 18:48 04/11/22 21:34 Acetaminophen 325 Mg Tablet PO 650 mg Q4H PRN Administration Mild Pain Enoxaparin Sodium 40 mg 04/11/22 21:00 04/11/22 21:49 Enoxaparin Sodium 40 Mg/0.4 Ml Syr SUBCUT 40 mg DAILY STEPHANIE Administration Sodium Chloride 1,000 mls @ 75 mls/hr 04/11/22 19:00 04/11/22 21:37 Sodium Chloride IV 75 mls/hr .[id number] STEPHANIE Administration Ondansetron HCl 4 mg 04/11/22 21:09 04/11/22 21:35 Ondansetron Hcl/Pf 4 Mg/2 Ml Sdv IVP 4 mg Q8H PRN Administration Nausea / Vomiting Sodium Chloride 1 syr 04/11/22 09:36 04/11/22 11:50 0.9% Sodium Chloride 10 Ml Disp.Syrin IVF 1 syr PRN PRN Administration To flush IV Discontinued Medications Generic Name Dose Route Start Last Admin Trade Name Fre[place]row PRN Reason Stop Dose Admin Acetaminophen 1,000 mg 04/11/22 09:31 04/11/22 09:39 Acetaminophen 500 Mg Tablet PO 04/11/22 09:32 1,000 mg ONCE STA Administration Dexamethasone Sodium Phosphate 4 mg 04/11/22 22:26 04/11/22 22:34 Dexamethasone Sod Phos 4 Mg/Ml Inj IVP 04/11/22 22:27 4 mg ONCE ONE Administration Enoxaparin Sodium 40 mg 04/12/22 09:00 Enoxaparin Sodium 40 Mg/0.4 Ml Syr SUBCUT DAILY STEPHANIE Sodium Chloride 500 mls @ 500 mls/hr 04/11/22 09:36 04/11/22 09:42 Sodium Chloride IV 04/11/22 10:35 500 mls/hr BOLUS STA Administration Sodium Chloride 1,000 mls @ 125 mls/hr 04/11/22 12:44 04/11/22 12:56 Sodium Chloride IV 04/11/22 20:43 Not Given .Q8H STA Sodium Chloride 500 mls @ 100 mls/hr 04/11/22 12:56 04/11/22 12:57 Sodium Chloride IV 04/11/22 17:55 125 mls/hr .Q5H STA Administration Dexamethasone Sodium Phosphate 1,000 mls @ 75 mls/hr 04/11/22 22:06 4 mg/ Sodium Chloride IV 04/12/22 11:25 ONCE ONE Ketorolac Tromethamine 30 mg 04/11/22 11:45 04/11/22 11:49 Ketorolac Tromethamine 30 Mg/Ml Vial IVP 04/11/22 11:46 30 mg ONCE STA Administration Lorazepam 0.5 mg 04/11/22 12:26 04/11/22 12:42 Lorazepam Inj 2 Mg/Ml Vial IVP 04/11/22 12:27 0.5 mg ONCE STA Administration Assessment (1) COVID: Status: Acute Code(s): U07.1 - COVID-19 SNOMED Code(s): 544955999 (2) Tachycardia: Status: Acute Code(s): R00.0 - Tachycardia, unspecified SNOMED Code(s): 2183753 (3) Nausea & vomiting: Status: Acute Code(s): R11.2 - Nausea with vomiting, unspecified SNOMED Code(s): 20927365 (4) Migraine: Status: Acute Code(s): G43.909 - Migraine, unspecified, not intractable, without status migrainosus SNOMED Code(s): 06074776 Plan Plan: 1. Covid new onset risk factor non vaccinated and obesity - pt would like to start Paxlovid understanding it is experimental 2.Tachycardia - cardio consult Dr Perry 3.Nausea / vomiting - improved with fluids and meds 4.Fever - improved with APAP 5.DVT - enoxeparin
[2022-04-12 05:19] VITALS: BP 125/88; TEMP 98.6
[2022-04-12 06:09] LABS: BASOPHILS % (AUTO) 0.4 % (0.0-3.0); HEMATOCRIT 41.3 % (37.0-47.0); IMMATURE GRANULOCYTE % (AUTO) 0.4 % (0.0-5.0); LYMPHOCYTES # (AUTO) 0.4 K/uL (0.60-3.4); LYMPHOCYTES % (AUTO) 16.3 (10.0-50.0); MEAN CORPUSCULAR HEMOGLOBIN 27.3 pg (27.0-31.0); MEAN CORPUSCULAR HGB CONC 31.5 (31.8-35.4); MEAN CORPUSCULAR VOLUME 86.8 fl (81.0-99.0); MONOCYTES # (AUTO) 0.1 K/uL (0.4-2.0); MONOCYTES % (AUTO) 3.9 (0-10); PLATELET COUNT 185 10^3/uL (140-440); RDW COEFFICIENT OF VARIATION 13.7 % (11.6-14.8); RED BLOOD COUNT 4.76 10^6/ul (4.20-5.40); WHITE BLOOD COUNT 2.58 K/ul (4.6-10.2)
[2022-04-12 06:19] LABS: ALANINE AMINOTRANSFERASE 23.7 U/L (0-35); ALBUMIN 3.88 g/dL (3.5-5.0); ALKALINE PHOSPHATASE 52.2 U/L (38-126); ASPARTATE AMINO TRANSFERASE 27.4 U/L (14-36); BILIRUBIN,TOTAL 0.21 mg/dL (0.2-1.3); BLOOD UREA NITROGEN 14.5 mg/dL (7-17); CALCIUM 8.31 mg/dL (8.4-10.2); CARBON DIOXIDE 21.4 mmol/L (22-30.0); CHLORIDE 107.7 mmol/L (98-107); CREATININE 0.82 mg/dL (0.60-1.30); GLUCOSE 147.2 mg/dL (74-106); POTASSIUM 4.18 mmol/L (3.5-5.1); SODIUM 138.9 mmol/L (134.5-145); TOTAL PROTEIN 6.97 g/dL (6.3-8.2)
[2022-04-12] MEDS: PAXLOVID 2X150 MG-100 MG (EUA) PO SCH (08:11)
[2022-04-12] MEDS: LOVENOX SUBCUT SCH (08:11)
[2022-04-12] MEDS ORDERED: LOVENOX SUBCUT SCH (09:00)
--- NOTE | 2022-04-12 10:11 | PCM.PROG ---
Date Seen by Provider: 04/12/22 Time Seen by Provider: 10:07 Subjective: Patient has no symptoms attributable to covid. She reports feeling well and is asking to go home today. Her pulse rate has been in the 80s and sinus rhythm. Patient is tolerating PO intake. Denies headache. Objective: Vitals: T=98.6 F, P=83, R=18, YB=140/88, SPO2=96 Patient appears well. She is alert and in NAD. HEENT: [] Neck: [] Lungs: [] Chest clear and breath tones are equal. CVS: [] Pulse is in the 80s and rhythm is sinus. No edema. Abdomen: [] Extremities: [] Neurological: [] Skin: [] Lab/Tests/Diagnostic Imaging: [] (1) COVID: Status: Acute Code(s): U07.1 - COVID-19 SNOMED Code(s): 920740724 (2) Tachycardia: Status: Acute Code(s): R00.0 - Tachycardia, unspecified SNOMED Code(s): 7682501 Assessment: Tachycardia resolved. (3) Nausea & vomiting: Status: Acute Code(s): R11.2 - Nausea with vomiting, unspecified SNOMED Code(s): 83506071 Assessment: Resolved. (4) Migraine: Status: Acute Code(s): G43.909 - Migraine, unspecified, not intractable, without status migrainosus SNOMED Code(s): 28035623 Assessment: Resolved. Plan: Will discharge patient after she is evaluated by Dr Perry today.
[2022-04-13 10:10] LABS: FREE THYROXINE INDEX 1.7 (1.2-4.9); THYROXINE (T4) 5.4 ug/dL (4.5-12.0); TSH 0.468 uIU/mL (0.450-4.500)
--- NOTE | 2022-04-14 07:12 | ECHO2D ---
Date of Exam: 04/12/2022 Ordering Physician: LOWELL Room #: SCU-2 Reason for Echo: TACHYCARDIA, COVID POSITIVE, ABNORMAL EKG M-Mode Normal Adult Results LV Dimensions Normal Adult Results AoV Opening excursions >1.6 >1.6 LVEDD-base- 3.5-5.8 4.4 Ao root dimensions 2.0-3.7 3.5 LVESD-base- 3.1-4.6 L. Atrium dimensions 1.9-3.8 3.6 Post. Wall thickness 0.8-1.1 1.0 IV septum (thickness) 0.7-1.2 1.1 Post. Wall excursion 0.72-1.3 NORMAL Septal motion NORMAL Systolic motion R. Ventricular cavity 1.5-2.0 NORMAL LVEF 60% 67% Paradoxical septal wall motion NORMAL 2-D : 2-D M Mode Echocardiogram was performed using apical four chamber and left parasternal long and short axis views. Mitral, tricuspid and aortic valves appear to be normal. Contractility of the left ventricle seems to be normal, so is the cavity size. Left atrial cavity size and aortic root appear to be normal. There is no pericardial effusion. There is no thrombus noted in the left ventricle or left atrial cavity. M-MODE: MV: NORMAL AV: NORMAL TV: NORMAL PV: CHAMBER SIZE: NORMAL WALL MOTION: NORMAL PERICARDIUM: NORMAL INTERPRETATION: 1. NORMAL 2 "D" "M" MODE ECHO [facility]
--- NOTE | 2022-05-02 08:20 | PCM.DC ---
Final Diagnosis: Covid 19 Infection, Migraine Headache, Tachycardia Physical Exam Appearance: Well-appearing Ill-appearing: None Pain Distress: None Eyes: LANI, EOMI and Conjunctiva clear ENT: Ears normal, Nose normal and Oropharynx normal Neck: Supple Respiratory: Airway patent, Breath sounds clear and Breath sounds equal Cardiovascular: RRR, No rub and No murmur GI/: Soft, Nontender, No masses and Bowel sounds normal Musculoskeletal: Normal strength, ROM intact and No edema Skin: Warm, Dry and Normal color Neurological: Sensation intact, Motor intact, Cranial nerves intact, Alert and Oriented Psychiatric: Affect appropriate and Mood appropriate (1) COVID: Status: Acute Code(s): U07.1 - COVID-19 SNOMED Code(s): 966712102 (2) Tachycardia: Status: Acute Code(s): R00.0 - Tachycardia, unspecified SNOMED Code(s): 1276848 (3) Nausea & vomiting: Status: Acute Code(s): R11.2 - Nausea with vomiting, unspecified SNOMED Code(s): 48965291 (4) Migraine: Status: Acute Code(s): G43.909 - Migraine, unspecified, not intractable, without status migrainosus SNOMED Code(s): 05509492 Reason for Hospitalization: Patient admitted with Covid 19 infection, migraine headache, tachycardia, nausea and vomiting. She received IV fluids, antiemetics and analgesics. Patient's nausea, emesis and headache resolved. She was tolerating PO fluids at the time of discharge. Prognosis/Condition at Discharge: Condition at discharge was good. Medications at Discharge: Ambulatory Orders Medication Instructions Recorded levonorgestrel 20 mcg/24 hours (7 1 ea IY d 09/05/15 yrs) 52 mg intrauterine device (Mirena) cetirizine 10 mg tablet (Zyrtec) 10 mg PO DAILY #30 tab-cap 08/25/17 escitalopram oxalate 10 mg tablet 10 mg PO DAILY 04/11/22 (Lexapro) nirmatrelvir 300 mg (150 mg x See Rx Instructions .ROUTE 04/11/22 2)-ritonavir 100 mg tablet (EUA) .COMPLEX #6 tab (Paxlovid 300 mg () promethazine 25 mg tablet 12.5 mg PO Q6H PRN #10 tab 04/11/22 Education Provided to Patient and Family: Covid 19 Infection and migraine headache Follow-ups: Patient to follow up with primary care provider within one week. Discharge Disposition: Home Hospital Course: Patient admitted with headache, nausea, emesis and covid infection. She received IV fluid hydration, antiemetics and analgesics. Her tachycardia, headache, nauea and emesis all resolved. Patient was tolerating PO fluids well at discharge. Plan: Discharge patient to home.
--- NOTE | 2022-05-04 14:26 | CONS ---
DATE OF CONSULTATION: 04/11/22 REASON FOR CONSULTATION: Sinus tachycardia with abnormal EKG. HISTORY OF PRESENT ILLNESS: 31 year old black female came to the emergency room because of having nausea, vomiting with headaches of nearly 24 hours duration. The patient thought that she was . The test was faintly positive and her COVID was negative at home. The patient was seen and examined in the ER by ER attending and was found to have negative and positive COVID test. The patient's EKG was done which showed sinus tachycardia with rate of 110-120 per minute with changes. Examined the patient in the room. At time the patient says that her nausea was still present but there was no vomiting. She had mild headaches. REVIEW OF SYSTEMS: CONSTITUTIONAL: No night sweats. Weakness and fatigue. No fever or chills. HEENT: Eyes: No visual changes. No eye pain. No eye discharge. ENT: No sinus drainage. No epistaxis. No sinus pain. No sore throat. No odynophagia. No ear pain. No congestion. RESPIRATORY: No cough, no congestion. No hemoptysis. No shortness of breath. CARDIOVASCULAR: No angina symptoms. No CHF symptoms. No atypical chest pain for CAD. No palpitations. No orthopnea. GASTROINTESTINAL: No abdominal pain. Mild nausea. No vomiting anymore. No diarrhea or constipation. No hematemesis. No hematochezia. GENITOURINARY: No urgency. No frequency. No dysuria. No hematuria. No obstructive symptoms. No discharge. No pain. No significant abnormal bleeding. MUSCULOSKELETAL: No musculoskeletal pain. No joint swelling. Generalized aches like a flu. NEUROLOGICAL: No headache. No neck pain. No syncope. No seizures. No dizziness. PSYCHIATRIC: Not anxious. No depression. No suicidal thoughts. No homicidal thoughts. SKIN: No rash. No lesions. No wounds. ENDOCRINE: No unexplained weight loss. No weight gain. HEMATOLOGIC/LYMPHATIC: No anemia. No purpura. No petechiae. No prolonged or excessive bleeding. No palpable lymph nodes. MEDICATIONS: Levonorgestrel Zyrtec Lexapro ALLERGIES: None PAST MEDICAL HISTORY./PAST SURGICAL HISTORY: Migraine headache History of sleep apnea Ovarian cyst The patient is on IUCD SOCIAL/PERSONAL/FAMILY HISTORY: The patient lives by herself. At present time she is not employed. She is to start job next couple of days. She is anxious. Nonsmoker. No alcohol abuse. No history of drug abuse. The patient's physician is MIRNA Romero PHYSICAL EXAMINATION: GENERAL: The patient is oriented to time, place and person. VITAL SIGNS: Temperature 99.2, pulse 1169, respiratory rate 20, blood pressure 132/84 and pulse ox 97%. HEENT: Head normocephalic, atraumatic. Eyes: Extraocular muscles are intact. Pupils are equal, round and reactive to light and accommodation. Ears: No lesions. Nose appeared normal. Throat: No exudate or erythema. NECK: Supple. No JVD, no carotid bruit. No lymphadenopathy or thyromegaly. LUNGS: Clear to auscultation. Percussion note normal. Chest symmetrical. HEART: S1, S2, no S3. No murmurs. No cyanosis or clubbing. No ascites. Pulses: Dorsalis pedis and posterior tibial pulses +1 to +2 bilaterally. ABDOMEN: Soft. Nontender. Bowel sounds active. No CVA tenderness. No mass felt. EXTREMITIES: No edema. Full range of motion of all extremities, equal. NEUROLOGIC: No focal deficit. Cranial nerves II through XII are grossly intact. No headache, no double vision or headache. SKIN: Not dry. Intact. Turgor - normal. LYMPHATIC: No palpable lymph nodes/no lymphedema. MUSCULOSKELETAL: Normal joints with no swelling. Muscle tone is normal. LABS: EKG sinus rhythm nonspecific ST-T wave change. Chest x-ray negative. HGB 13, hct 41, WBC 4,800 normal differential. test negative. COVID test positive.Urine negative. Potassium 4.2. Creatinine 0.8, BUN 13, TSH borderline low but T4 is normal. troponin negative. ASSESSMENT: 1. Sinus tachycardia like combination of acute gastroenteritis related to probably COVID 19 positive status. RECOMMENDATIONS: 1. The patient's case discussed with attending 2. The patient has no symptoms of CHF or no signs of CHF. 3. Cardiovascular status is stable. 4. Echo in the morning with evaluate LV status 5. The patient is on IV fluids on 25cc per hour and her rate is dipping down to 90-100 per minute. 6. On the floor the patient was running low grade fever with combination of fever, dehydration and COVID 19 status may of cause sinus tachycardia. 7. Follow with telemetry 8. No need to treat sinus tachycardia at present time. [facility]
--- NOTE | 2022-05-04 14:41 | CONS ---
DATE OF SERVICE: 04/12/22 CONSULT FOLLOWUP SUBJECTIVE: 31 year old black female was seen because of sinus tachycardia and abnormal EKG. The patient is COVID 19 status positive. This morning her rate is 80-90 per minute. She is feeling a lot better. The appetite is practically normal. REVIEW OF SYSTEMS: CONSTITUTIONAL: No night sweats. No fatigue, malaise, lethargy. No fever or chills. HEENT: Eyes: No visual changes. No eye pain. No eye discharge. ENT: No runny nose. No epistaxis. No sinus pain. No sore throat. No odynophagia. No ear pain. No congestion. RESPIRATORY: No cough, no congestion. No hemoptysis. CARDIOVASCULAR: No angina symptoms. No CHF symptoms. No atypical chest pain for CAD. No palpitations. No shortness of breath. GASTROINTESTINAL: No abdominal pain. No nausea or vomiting. No diarrhea or constipation. No hematemesis. No hematochezia. GENITOURINARY: No urgency. No frequency. No dysuria. No hematuria. No obstructive symptoms. No discharge. No pain. No significant abnormal bleeding. MUSCULOSKELETAL: No musculoskeletal pain. No joint swelling. No arthritis. NEUROLOGICAL: No headache. No neck pain. No syncope. No seizures. No dizziness. PSYCHIATRIC: Not anxious. No depression. No suicidal thoughts. No homicidal thoughts. SKIN: No rash. No lesions. No wounds. ENDOCRINE: No unexplained weight loss. No weight gain. HEMATOLOGIC/LYMPHATIC: No anemia. No purpura. No petechiae. No prolonged or excessive bleeding. No palpable lymph nodes. PHYSICAL EXAMINATION: GENERAL: The patient is oriented to time, place and person. HEENT: Head normocephalic, atraumatic. Eyes: Extraocular muscles are intact. Pupils are equal, round and reactive to light and accommodation. Ears: No lesions. Nose appeared normal. Throat: No exudate or erythema. NECK: Supple. No JVD, no carotid bruit. No lymphadenopathy or thyromegaly. LUNGS: Clear to auscultation. Percussion note normal. Chest symmetrical. HEART: S1, S2, no S3. No murmur. No cyanosis or clubbing. No ascites. Pulses: Dorsalis pedis and posterior tibial pulses +1 to +2 bilaterally. ABDOMEN: Soft. Nontender. Bowel sounds active. No CVA tenderness. No mass felt. EXTREMITIES: No edema. Full range of motion of all extremities, equal. NEUROLOGIC: No focal deficit. Cranial nerves II through XII are grossly intact. No headache, no double vision or headache. SKIN: Not dry. Intact. Turgor - normal. LYMPHATIC: No palpable lymph nodes/no lymphedema. MUSCULOSKELETAL: Normal joints with no swelling. Muscle tone is normal. LABS: Hgb 13, hct 41, WBC 2,500 normal differential, creatinine 0.8, BUN 14, potassium 4.1. Troponin is negative. EKG is sinus rhythm. Nonspecific ST-T wave change. Troponin negative. Echo shows normal LV contractility, normal LA size, normal valvular structure, Normal LV size. RECOMMENDATIONS: 1. Case discussed with the attending. 2. Cardiovascular status is stable as far as cardiovascular status is concerned the patient could be discharged home 3. Advised to followup with MIRNA Romero CONDITION: Stable. CHARITO
--- NOTE | 2022-05-04 14:42 | PN ---
04/11/22: Level 5 04/12/22: Intermediate MTDD
== END 2022-04-12 13:10 | disposition home or self-care (01) | DRG 179 ==
LOC: ED 08:38 → SCU 20:18 → EDSTATUS 04-12 09:04
PROVIDERS: ADMIT Family Medicine; ATTEND Surgery
DX: R11.2 Nausea with vomiting, unspecified; U07.1 COVID-19; R00.0 Tachycardia, unspecified; G43.909 Migraine, unspecified, not intractable, without status migrainosus; Z51.81 Encounter for therapeutic drug level monitoring; Z79.899 Other long term (current) drug therapy